=== PATIENT | female | born 1975 | race Hispanic/Latino ===

== ENCOUNTER 2017-02-10 14:27 | Emergency (ER) | payer MEDICAID ==
[2017-02-10 14:27] VITALS: BMI 26.6
[2017-02-10 14:31] VITALS: O2SAT 98
--- NOTE | 2017-02-10 14:48 | ED PDOC ---
HPI: General Adult Time Seen by Provider: 02/10/17 14:42 Chief Complaint (Nursing): Abdominal Pain Chief Complaint (Provider): abdominal pain History Per: Patient History/Exam Limitations: no limitations Additional History Per: Patient Additional Complaint(s): 41yo female sent from [facility] for ectopic. Patient complaining of bilateral lower abdominal pain. Past Medical History Reviewed: Historical Data, Nursing Documentation, Vital Signs Vital Signs: Last Vital Signs Temp 98.2 F 02/10/17 20:11 Pulse 83 02/10/17 20:11 Resp 14 02/10/17 20:11 BP 140/82 02/10/17 20:11 Pulse Ox 98 02/10/17 20:11 - Medical History PMH: Anxiety, Asthma (child), Crohn's Disease (dc 11/2014), Depression, Diabetes , Hypothyroidism, Migraine, Seizures (child) Denies: Alzheimer's Disease, Anemia, Arthritis, Bipolar Disorder, Bronchitis , CAD, Cardia Arrhythmia, CHF, COPD, Dementia, Emphysema, Fibromyalgia, Fractures, Gastrointestinal Ulcer, Gall Bladder Disease, HIV, HTN, Hypercholesterolemia, Hyperthyroidism, Kidney Stones, Mitral Valve Prolapse, Osteoporosis, Pancreatitis, Paranoia, Parkinson's Disease, Peripheral Edema, Pneumonia, Post Traumatic Stress Disorder, Chronic Kidney Disease, Schizophrenia , Sickle Cell Disease, Sexually Transmitted Disease, Sleep Apnea, TIA Comment Only: Diverticulitis (denius) - Surgical History Surgical History: Denies: Appendectomy, Cholecystectomy, Coronary Stent, Pacemaker - Family History Family History: States: Unknown Family Hx - Living Arrangements Living Arrangements: With Family - Social History Current smoker - smoking cessation education provided: No Alcohol: None Drugs: Denies - Immunization History Hx Tetanus Toxoid Vaccination: Yes Hx Influenza Vaccination: Yes Hx Pneumococcal Vaccination: Yes - Home Medications Home Medications: Ambulatory Orders Medication Instructions Recorded Insulin Detemir [Levemir] 20 units SC HS #0 vial 10/20/15 Insulin Lispro [humALOG] 0 units SC AC 02/10/17 Ibuprofen [Motrin Tab] 600 mg PO Q6 PRN #40 tab 02/14/17 oxyCODONE/Acetaminophen [Percocet 1 tab PO Q4 PRN #20 tab 02/14/17 5/325 mg Tab] - Allergies Allergies/Adverse Reactions: Allergies Allergy/AdvReac Type Severity Reaction Status Date / Time No Known Allergies Allergy Verified 02/10/17 10:53 Review of Systems ROS Statement: Except As Marked, All Systems Reviewed And Found Negative Gastrointestinal: Positive for: Abdominal Pain. Negative for: Vomiting Physical Exam - Reviewed Nursing Documentation Reviewed: Yes Vital Signs Reviewed: Yes - Physical Exam Appears: Positive for: Well, Non-toxic (+mild painful distress) Head Exam: Positive for: ATRAUMATIC, NORMAL INSPECTION, NORMOCEPHALIC Skin: Positive for: Warm, Dry Eye Exam: Positive for: EOMI, PERRL Cardiovascular/Chest: Positive for: Regular Rate, Rhythm Respiratory: Positive for: Normal Breath Sounds. Negative for: Rales, Rhonchi, Wheezing Gastrointestinal/Abdominal: Positive for: Soft, Tenderness (bilateral lower quadrant tenderness left greater than right) Extremity: Positive for: Normal ROM - ECG O2 Sat by Pulse Oximetry: 98 (RA) Pulse Ox Interpretation: Normal Medical Decision Making Medical Decision Makin Case discuss with Dr Acevedo [employer] P[employer] INSPECTOR who requested I discuss with Dr. Gooden. 1506 Dr. Gooden [employer] P[employer] INSPECTOR in delivery. [address] Gooden [employer]ESS PIPE INSPECTOR. 1625 Dr. Gooden at bedside. 1633 Dr. Gooden will give methotrexate. 191 case was discussed with Dr. Gooden who gave methotrexate. She instructed patient to return on Day 4 and Day 7 for repeat beta. Unable to find patient in [employer], will send home with rx percocet. Disposition - Clinical Impression Clinical Impression: Ectopic - Disposition Disposition: Routine/Home Disposition Time: 19:16 Condition: STABLE Additional Instructions: RETURN TO ED ON DAY 4 (02/13) and DAY 7 (02/16) FOR REPEAT BETA HCG. RETURN TO ED EARLIER IF YOU DEVELOP INCREASING PAIN OR BLEEDING. Instructions: Ectopic (ED) Additional Comments - Additional Comments Additional Comments: Scribe Attestation: Documented by Magnus Crow acting as a scribe for Ana Little MD. Scribe Attestation: All medical record entries made by the Scribe were at my direction and personally dictated by me. I have reviewed the chart and agree that the record accurately reflects my personal performance of the history, physical exam, medical decision making, and the department course for this patient. I have also personally directed, reviewed, and agree with the discharge instructions and disposition.
[2017-02-10] MEDS ORDERED: Methotrexate 50 mg/2 ml Inj IM ONE (16:54)
[2017-02-10] MEDS ORDERED: METHOTREXATE IM ONE ×2 (17:00→17:15)
--- NOTE | 2017-02-10 17:23 | CP.PCM.CON ---
History of Present Illness - History of Present Illness History of Present Illness: Patient is a 41 yo @ about 6 wks, history of type II DM on insulin who presents with vaginal bleeding and is found to have an ectopic . Patient has is found on ultrasound to have a gestational sac and yolk sac on the left side next to the adnexa with a BHCG = 1786, hgb = 12.6 and VSS. Patient has some mild abdominal pain, no vomiting, no nausea, mild HUGHES, no sob, no LOC, no CP, some mild vaginal bleeding, no difficulty ambulating. Review of Systems - Review of Systems Systems not reviewed;Unavailable: Acuity of Condition Past Patient History - Infectious Disease Hx of Infectious Diseases: None - Tetanus Immunizations Tetanus Immunization: Unknown - Past Social History Alcohol: None Drugs: Denies - CARDIAC Hx Cardia Arrhythmia: No Hx Congestive Heart Failure: No Hx Hypercholesterolemia: No Hx Hypertension: No Hx Mitral Valve Prolapse: No Hx Pacemaker: No Hx Peripheral Edema: No - PULMONARY Hx Asthma: Yes (child) Hx Bronchitis: No Hx Chronic Obstructive Pulmonary Disease (COPD): No Hx Emphysema: No Hx Pneumonia: No Hx Sleep Apnea: No - NEUROLOGICAL Hx Alzheimer's Disease: No Hx Dementia: No Hx Migraine: Yes Hx Parkinson's Disease: No Hx Seizures: Yes (child) Hx Transient Ischemic Attacks (TIA): No - HEENT Hx HEENT Problems: Yes Other/Comment: wears contacts - RENAL Hx Chronic Kidney Disease: No Hx Kidney Stones: No - ENDOCRINE/METABOLIC Hx Hyperthyroidism: No Hx Hypothyroidism: Yes - HEMATOLOGICAL/ONCOLOGICAL Hx Anemia: No Hx Human Immunodeficiency Virus (HIV): No Hx Sickle Cell Disease: No - INTEGUMENTARY Hx Dermatological Problems: No - MUSCULOSKELETAL/RHEUMATOLOGICAL Hx Arthritis: No Hx Fractures: No Hx Osteoporosis: No - GASTROINTESTINAL Hx Crohn's Disease: Yes (dc 11/2014) Hx Diverticulitis: (denius) Hx Gall Bladder Disease: No Hx Pancreatitis: No - GENITOURINARY/GYNECOLOGICAL Hx Sexually Transmitted Disorders: No - PSYCHIATRIC Hx Anxiety: Yes Hx Bipolar Disorder: No Hx Depression: Yes Hx Paranoia: No Hx Post Traumatic Stress Disorder: No Hx Schizophrenia: No - SURGICAL HISTORY Hx Appendectomy: No Hx Cholecystectomy: No Hx Coronary Stent: No - ANESTHESIA Hx Anesthesia: Yes Hx Anesthesia Reactions: No Hx Malignant Hyperthermia: No Meds Allergies/Adverse Reactions: Allergies Allergy/AdvReac Type Severity Reaction Status Date / Time No Known Allergies Allergy Verified 02/10/17 10:53 - Medications Medications: Current Medications Methotrexate (Methotrexate) 100 mg IM ONCE ONE PRN Reason: Protocol Stop: 02/10/17 16:55 Physical Exam - Head Exam Head Exam: ATRAUMATIC - Respiratory Exam Respiratory Exam: NORMAL BREATHING PATTERN - Cardiovascular Exam Cardiovascular Exam: REGULAR RHYTHM - GI/Abdominal Exam GI & Abdominal Exam: Soft Additional comments: no rebound, no gaurding, mild pain on deep palpation, +BS - Extremities Exam Extremities exam: Positive for: normal inspection - Skin Skin Exam: Dry, Normal Color Results - Vital Signs Recent Vital Signs: Last Vital Signs Temp 98.0 F 02/10/17 14:29 Pulse 85 02/10/17 14:29 Resp 16 02/10/17 14:29 BP 144/80 02/10/17 14:29 Pulse Ox 98 02/10/17 16:37 Assessment & Plan - Assessment and Plan (Free Text) Assessment: A/P 41 yo @ 6wks with ectopic for treatment with methotrexate 1. Patient examined and chart/lab findings reviewed. Patient is found to have a yolk sac present on left side, BHCG = 1728, HGB = 12.6, AST/ALT and BUN/Cr nml. Patient has mild abdominal pain on exam, VSS, some vaginal bleeding. 2. Will treat patient with Methotrexate. DIscussed risks/benefits with patient. Patient to follow up on Day 4 ( 02/13) and Day 7 ( 02/16) for BHCG. If patient has severe abdominal pain, patient instructed to return to hospital. If patient has less than 15% drop or if has not resolved, patient may still result in surgery for treatment or a second dose of Methotrexate. 3. All questions answered. Methotrexate ordered from pharmacy and will inject patient
[2017-02-10] MEDS ORDERED: Oxycodone/Acetaminophen 5/325 mg Tab ONE (18:59)
[2017-02-10] MEDS ORDERED: Oxycodone/Acetaminophen 5/325 mg Tab PO STA (19:10)
[2017-02-10 20:14] VITALS: BP 140/82; PULSE 83; RESP 14; TEMP 98.2
== END 2017-02-10 19:30 | disposition home or self-care (01) ==
LOC: H.ER 14:27
DX: O00.90 Unspecified ectopic pregnancy without intrauterine pregnancy (principal); E03.9 Hypothyroidism, unspecified; E11.9 Type 2 diabetes mellitus without complications; F41.9 Anxiety disorder, unspecified; K50.90 Crohn's disease, unspecified, without complications; Z79.4 Long term (current) use of insulin; J45.909 Unspecified asthma, uncomplicated

== ENCOUNTER 2017-02-13 11:22 | Inpatient (IN) | payer MEDICAID ==
[2017-02-13 11:22] VITALS: BMI 26.6
--- NOTE | 2017-02-13 12:31 | ED PDOC ---
HPI: General Adult History Per: Patient <Anthony Coronel - Last Filed: 02/13/17 12:28> <José Manuel Blank - Last Filed: 02/13/17 16:32> Time Seen by Provider: 02/13/17 11:46 Chief Complaint (Nursing): Abdominal Pain Additional Complaint(s): Pt. states on 02/10/17 she was diagnosed with an ectopic and was given a shot of MTX. She was instructed by Dr. Gooden to come today for repeat BHCG. Pt. states pain has been the same since she came in and has not worsened. Also reports that bleeding has decreased. Further reports percocet provides transiet relief. Denies hx of ectopic , N/V, fever. (Anthony Coronel) Supervising Attending Note <Anthony Coronel - Last Filed: 02/13/17 12:28> - Attestation: I have personally seen and examined this patient.: Yes I have fully participated in the care of the patient.: Yes <José Manuel Blank - Last Filed: 02/13/17 16:32> - Notes: Notes:: Pt. seen at bedside, BP 104/78, HR 77, nontoxic appearing, complains of pain. Pt. seen and examined by Dr. Trujillo who wishes to take patient to OR for removal. No rupture on sonogram. Patient stable. (José Manuel Blank) Past Medical History Reviewed: Historical Data, Nursing Documentation, Vital Signs - Medical History PMH: Anxiety, Asthma (child), Crohn's Disease (dc 11/2014), Depression, Diabetes , Hypothyroidism, Migraine, Seizures (child) Denies: Alzheimer's Disease, Anemia, Arthritis, Bipolar Disorder, Bronchitis , CAD, Cardia Arrhythmia, CHF, COPD, Dementia, Emphysema, Fibromyalgia, Fractures, Gastrointestinal Ulcer, Gall Bladder Disease, HIV, HTN, Hypercholesterolemia, Hyperthyroidism, Kidney Stones, Mitral Valve Prolapse, Osteoporosis, Pancreatitis, Paranoia, Parkinson's Disease, Peripheral Edema, Pneumonia, Post Traumatic Stress Disorder, Chronic Kidney Disease, Schizophrenia , Sickle Cell Disease, Sexually Transmitted Disease, Sleep Apnea, TIA Comment Only: Diverticulitis (denius) - Surgical History Surgical History: Denies: Appendectomy, Cholecystectomy, Coronary Stent, Pacemaker - Family History Family History: States: Unknown Family Hx - Immunization History Hx Tetanus Toxoid Vaccination: Yes Hx Influenza Vaccination: Yes Hx Pneumococcal Vaccination: Yes <Anthony Coronel - Last Filed: 02/13/17 12:28> <José Manuel Blank - Last Filed: 02/13/17 16:32> Vital Signs: Last Vital Signs Temp 98.8 F 02/13/17 16:12 Pulse 84 02/13/17 16:13 Resp 21 02/13/17 16:12 BP 104/63 02/13/17 16:12 Pulse Ox 97 02/13/17 16:12 - Home Medications Home Medications: Ambulatory Orders Medication Instructions Recorded Insulin Detemir [Levemir] 20 units SC HS #0 vial 10/20/15 Insulin Lispro [humALOG] 0 units SC AC 02/10/17 oxyCODONE/Acetaminophen [Percocet 1 tab PO Q6H PRN #15 tab 02/10/17 5/325 mg Tab] - Allergies Allergies/Adverse Reactions: Allergies Allergy/AdvReac Type Severity Reaction Status Date / Time No Known Allergies Allergy Verified 02/10/17 10:53 Review of Systems ROS Statement: Except As Marked, All Systems Reviewed And Found Negative Genitourinary Female: Positive for: Vaginal Bleeding, Pelvic Pain <Anthony Coronel - Last Filed: 02/13/17 12:28> Physical Exam - Reviewed Nursing Documentation Reviewed: Yes Vital Signs Reviewed: Yes - Physical Exam Appears: Positive for: Well, Non-toxic, No Acute Distress Head Exam: Positive for: ATRAUMATIC, NORMAL INSPECTION, NORMOCEPHALIC Skin: Positive for: Normal Color, Warm. Negative for: Rash Eye Exam: Positive for: EOMI, Normal appearance, PERRL ENT: Positive for: Normal ENT Inspection Neck: Positive for: Normal, Painless ROM Cardiovascular/Chest: Positive for: Regular Rate, Rhythm Respiratory: Positive for: CNT, Normal Breath Sounds Gastrointestinal/Abdominal: Positive for: Normal Exam, Bowel Sounds, Soft. Negative for: Tenderness Back: Positive for: Normal Inspection Extremity: Positive for: Normal ROM Neurologic/Psych: Positive for: Alert, Oriented <Anthony Coronel Last Filed: 02/13/17 12:28> - ECG O2 Sat by Pulse Oximetry: 100 <Anthony Coronel - Last Filed: 02/13/17 12:28> - Laboratory Results Result Diagrams: 02/13/17 12:25 02/13/17 12:25 <José Manuel Blank - Last Filed: 02/13/17 16:32> - Progress ED Course And Treament: Labs ordered. OB TVUS ordered. Morphine 4mg IV, zofran 4mg IV given. ( Anthony Coronel) Disposition <Anthony Coronel - Last Filed: 02/13/17 12:28> - Disposition Disposition: Routine/Home Disposition Time: 16:32 <José Manuel Blank - Last Filed: 02/13/17 16:32> - Clinical Impression Clinical Impression: Ectopic - Disposition Condition: STABLE
[2017-02-13 12:47] LABS: BASO # 0.2 K/uL (0.0-0.2); BASO % 1.2 % (0.0-2.0); EOS # 0.4 K/uL (0.0-0.7); EOS % 2.4 % (0.0-4.0); HEMATOCRIT 37.5 % (34.0-47.0); LYMPH % 27.5 % (20.0-40.0); MEAN CELL VOLUME 89.2 fl (81.0-99.0); MEAN CORPUSCULAR HEMOGLOBIN 29.5 pg (27.0-31.0); MEAN CORPUSCULAR HGB CONC 33.1 g/dL (33.0-37.0); MEAN PLATELET VOLUME 8.4 fl (7.2-11.7); MONO # 0.8 K/uL (0.0-0.8); MONO % 5.2 % (0.0-10.0); NEUT # 9.3 K/uL (1.8-7.0); NEUT % 63.7 % (50.0-75.0); NRBC % 0.1 % (0.0-0.0); RED CELL DISTRIBUTION WIDTH 15.3 % (11.5-14.5); WHITE BLOOD COUNT 14.6 K/uL (4.8-10.8)
[2017-02-13 12:56] LABS: ALB/GLOB RATIO 1.2 (1.0-2.1); GLUCOSE,RANDOM 43 mg/dL (65-105); TOTAL PROTEIN 6.9 G/DL (6.3-8.2)
[2017-02-13 12:58] LABS: ALKALINE PHOSPHATASE 74 U/L (38-126); ALT/SGPT 24 U/L (9-52); AST/SGOT 22 U/L (14-36); BILIRUBIN,TOTAL 0.2 mg/dl (0.2-1.3); BLOOD UREA NITROGEN 9 mg/dl (7-17); CALCIUM 9.3 mg/dL (8.4-10.2); CARBON DIOXIDE 25 mmol/L (22-30); CHLORIDE 103 mmol/L (98-107); GFR AFRICAN-AMERICAN > 60; SODIUM 139 mmol/l (132-148)
[2017-02-13 13:09] LABS: PH,URINE 6.5 (5.0-8.0); URINE BILIRUBIN NEGATIVE (NEGATIVE); URINE BLOOD MODERATE (NEGATIVE); URINE COLOR LIGHT YELLOW (YELLOW); URINE GLUCOSE (UA) NEGATIVE (Normal); URINE KETONE NEGATIVE (NEGATIVE); URINE PROTEIN NEGATIVE (NEGATIVE)
[2017-02-13 13:10] LABS: RBC URINE 3 /hpf (0-3); URINE BACTERIA FEW (<OCC); URINE LEUKOCYTE ESTERASE TRACE Leu/uL (Negative); URINE UROBILINOGEN 0.2 mg/dL (0.2-1.0); WBC URINE 2 /hpf (0-5)
--- NOTE | 2017-02-13 15:09 | US ---
HISTORY: Ectopic ; given MTX COMPARISON: None available. TECHNIQUE: Transvaginal pelvic ultrasound was performed. FINDINGS: UTERUS: The uterus is anteverted, enlarged and measures 9.1 x 5.5 x 6.1 cm. No fibroid or other mass lesion seen. ENDOMETRIUM: Measures 2.6 cm in diameter. CERVIX: No cervical abnormality identified. RIGHT OVARY: Not visualized. LEFT OVARY: Measures 2.3 x 1.6 x 2.0 cm. No solid mass. Normal flow. There is an ectopic in the left adnexa. The pole measures 2 mm and corresponds to 5 weeks and 5 days of gestational age. Yolk sac is visualized. cardiac activity is documented a with a heart rate of 108 beats per minute. FREE FLUID: No significant free fluid noted. OTHER FINDINGS: None. IMPRESSION: Left ectopic with pole and yolk sac identified. cardiac activity measures 108 beats per minute. No evidence of free fluid in the pelvis.
--- NOTE | 2017-02-13 16:14 | CP.PCM.HP ---
History of Present Illness - History of Present Illness History of Present Illness: 41yo female dz with ectopic 3 days ago and given MTX. Pt presents today with acute abdominal pain. Pt s/p 2 doses of IV morphine due to pain and patient reports pain persisting. No N/V, CP, SoB. VSS in ED. Present on Admission - Present on Admission Any Indicators Present on Admission: No History of DVT/PE: No History of Uncontrolled Diabetes: No Urinary Catheter: No Decubitus Ulcer Present: No Past Patient History - Infectious Disease Hx of Infectious Diseases: None - Tetanus Immunizations Tetanus Immunization: Unknown - Past Social History Smoking Status: Heavy Smoker > 10 Cigarettes Daily - CARDIAC Hx Cardia Arrhythmia: No Hx Congestive Heart Failure: No Hx Hypercholesterolemia: No Hx Hypertension: No Hx Mitral Valve Prolapse: No Hx Pacemaker: No Hx Peripheral Edema: No - PULMONARY Hx Asthma: Yes (child) Hx Bronchitis: No Hx Chronic Obstructive Pulmonary Disease (COPD): No Hx Emphysema: No Hx Pneumonia: No Hx Sleep Apnea: No - NEUROLOGICAL Hx Alzheimer's Disease: No Hx Dementia: No Hx Migraine: Yes Hx Parkinson's Disease: No Hx Seizures: Yes (child) Hx Transient Ischemic Attacks (TIA): No - HEENT Hx HEENT Problems: No - RENAL Hx Chronic Kidney Disease: No Hx Kidney Stones: No - ENDOCRINE/METABOLIC Hx Hyperthyroidism: No Hx Hypothyroidism: Yes - HEMATOLOGICAL/ONCOLOGICAL Hx Anemia: No Hx Human Immunodeficiency Virus (HIV): No Hx Sickle Cell Disease: No - INTEGUMENTARY Hx Dermatological Problems: No - MUSCULOSKELETAL/RHEUMATOLOGICAL Hx Arthritis: No Hx Fractures: No Hx Osteoporosis: No - GASTROINTESTINAL Hx Crohn's Disease: Yes (dc 11/2014) Hx Diverticulitis: (denius) Hx Gall Bladder Disease: No Hx Pancreatitis: No - GENITOURINARY/GYNECOLOGICAL Hx Sexually Transmitted Disorders: No - PSYCHIATRIC Hx Anxiety: Yes Hx Bipolar Disorder: No Hx Depression: Yes Hx Paranoia: No Hx Post Traumatic Stress Disorder: No Hx Schizophrenia: No - SURGICAL HISTORY Hx Appendectomy: No Hx Cholecystectomy: No Hx Coronary Stent: No - ANESTHESIA Hx Anesthesia: Yes Hx Anesthesia Reactions: No Hx Malignant Hyperthermia: No Meds Allergies/Adverse Reactions: Allergies Allergy/AdvReac Type Severity Reaction Status Date / Time No Known Allergies Allergy Verified 02/10/17 10:53 Physical Exam - Head Exam Head Exam: ATRAUMATIC, NORMOCEPHALIC - Respiratory Exam Respiratory Exam: NORMAL BREATHING PATTERN - Cardiovascular Exam Cardiovascular Exam: REGULAR RHYTHM - GI/Abdominal Exam GI & Abdominal Exam: Normal Bowel Sounds, Soft Additional comments: +diffuse tenderness. +rebound and gaurding with palpation - Rectal Exam Rectal Exam: NORMAL INSPECTION - Neurological Exam Neurological exam: Alert, Oriented x3 Results - Vital Signs Recent Vital Signs: Last Vital Signs Temp 98.3 F 02/13/17 11:24 Pulse 90 02/13/17 11:24 Resp 18 02/13/17 11:24 BP 123/74 02/13/17 11:24 Pulse Ox 100 02/13/17 12:31 - Labs Result Diagrams: 02/13/17 12:25 02/13/17 12:25 Labs: Laboratory Results - last 24 hr 02/13/17 02/13/17 02/13/17 12:25 12:25 12:25 WBC 14.6 H RBC 4.20 Hgb 12.4 Hct 37.5 MCV 89.2 MCH 29.5 MCHC 33.1 RDW 15.3 H Plt Count 355 MPV 8.4 Neut % (Auto) 63.7 Lymph % (Auto) 27.5 [place] % (Auto) 5.2 Eos % (Auto) 2.4 Baso % (Auto) 1.2 Neut # 9.3 H Lymph # 4.0 [place] # 0.8 Eos # 0.4 Baso # 0.2 Sodium 139 Potassium 4.0 Chloride 103 Carbon Dioxide 25 Anion Gap 15 BUN 9 Creatinine 0.6 L Est GFR ( Amer) > 60 Est GFR (Non-Af Amer) > 60 Random Glucose 43 L Calcium 9.3 Total Bilirubin 0.2 AST 22 ALT 24 Alkaline Phosphatase 74 Total Protein 6.9 Albumin 3.8 Globulin 3.1 Albumin/Globulin Ratio 1.2 Beta HCG, Quant 3302.30 Urine Color Light yellow Urine Clarity Clear Urine pH 6.5 Ur Specific [place] <= 1.005 Urine Protein Negative Urine Glucose (UA) Negative Urine Ketones Negative Urine Blood Moderate Urine Nitrate Negative Urine Bilirubin Negative Urine Urobilinogen 0.2 Ur Leukocyte Esterase Trace Urine RBC (Auto) 3 Urine Microscopic WBC 2 Ur Squamous Epith Cells 30 H Urine Bacteria Few H Assessment & Plan - Assessment and Plan (Free Text) Assessment: Ectopic , s/p MTX with acute pain. Plan: Discussed with patient options. Recommended surgery due to level of pain and patient agrees with plan. Pt consented for laparoscopy, possible laparotomy, removal of ectopic, possible removal of tube. Discussed with patient the general R/B/A of surgery and all patient questions answered. Main OR and anesthesia notified. - Date & Time Date: 02/13/17 Time: 16:18
[2017-02-13] MEDS ORDERED: Propofol 10 mg/ml Inj (20 ML) ONE (16:31)
[2017-02-13] MEDS ORDERED: Midazolam 2 MG/2 ML VIAL ONE (16:32)
[2017-02-13] MEDS ORDERED: Rocuronium 10 mg/ml (5 ml) ONE (16:32)
[2017-02-13] MEDS ORDERED: Neostigmine Methylsulfate 3mg/3ml Syringe IV ONE (16:32)
[2017-02-13] MEDS ORDERED: Succinylcholine 200 mg/10 ml Inj IV ONE (16:32)
[2017-02-13] MEDS ORDERED: ePHEDrine 50 mg/ml Inj ONE (16:32)
[2017-02-13] MEDS ORDERED: Phenylephrine 10 mg/ml Inj ONE (16:33)
[2017-02-13] MEDS ORDERED: Lactated Ringer's 1,000 ML IV ONE ×2 (16:45→18:55)
[2017-02-13 16:57] LABS: PARTIAL THROMBOPLASTIN TIME 26.4 SECONDS (23.3-32.5)
[2017-02-13] MEDS ORDERED: HYDROmorphone 0.5 mg/0.5 ml ISec ONE ×2 (18:21→18:28)
[2017-02-13] MEDS ORDERED: Lactated Ringer's 1,000 ML IV SCH ×2 (18:44→20:03)
[2017-02-13] MEDS ORDERED: HYDROmorphone 0.5 mg/0.5 ml ISec IVP PRN (18:56)
[2017-02-13] MEDS ORDERED: HYDROmorphone 0.5 mg/0.5 ml ISec IVP ONE ×2 (19:20→19:30)
[2017-02-13] MEDS ORDERED: DiphenhydrAMINE 50 mg/ml Inj ONE (19:38)
[2017-02-13] MEDS ORDERED: DiphenhydrAMINE 50 mg/ml Inj IVP PRN (19:44)
[2017-02-13] MEDS ORDERED: Oxycodone/Acetaminophen 5/325 mg Tab PO PRN ×2 (20:03→20:08)
[2017-02-13] MEDS ORDERED: Glucagon Recombinant 1 mg Inj IM PRN (21:36)
[2017-02-13] MEDS ORDERED: Dextrose 50% SYRINGE Inj (50 ml) IV PRN (21:36)
[2017-02-13] MEDS ORDERED: Insulin Regular 100 units/ml SC SCH (21:40)
--- NOTE | 2017-02-13 22:36 | PCM.SURG1 ---
Surgeon's Initial Post Op Note - Surgeon's Notes Surgeon: Cassandra Brush Maker: Yariel Type of Anesthesia: General Endo Anesthesia Administered By: Francisca Pre-Operative Diagnosis: Ectopic Operative Findings: Left tubal ectopic , Normal right tube, normal ovaries bilaterally, normal uterus Post-Operative Diagnosis: Left tubal ectopic Operation Performed: Laparoscopy, Left salpingectomy Specimen/Specimens Removed: Left tube with ectopic Estimated Blood Loss: EBL {In ML}: 100 Blood Products Given: N/A Drains Used: No Drains Post-Op Condition: Good Date of Surgery/Procedure: 02/13/17 Time of Surgery/Procedure: 22:37
--- NOTE | 2017-02-13 22:45 | CP.PCM.PN ---
Subjective - Date & Time of Evaluation Date of Evaluation: 02/13/17 Time of Evaluation: 22:41 - Subjective Subjective: Pt requesting more pain medication. Tolerating liquids. No CP/SOB. No N/V. + Void without problem. Ambulating small amt. Objective - Vital Signs/Intake and Output Vital Signs (last 24 hours): Temp Pulse Resp BP Pulse Ox 98.4 F 80 18 115/66 97 02/13/17 20:21 02/13/17 20:21 02/13/17 20:21 02/13/17 20:21 02/13/17 20:21 Intake and Output: 02/13/17 02/14/17 18:59 06:59 Intake Total 1300 Output Total 190 Balance 1300 -190 - Medications Medications: Current Medications Dextrose (Dextrose 50% Inj) 0 ml IV STAT PRN; Protocol PRN Reason: Hyglycemia Protocol Dextrose (Glutose 15) 0 gm PO ONCE PRN; Protocol PRN Reason: Hypoglycemia Protocol Diphenhydramine HCl (Benadryl) 25 mg IVP ONCE PRN PRN Reason: Anxiety Last Admin: 02/13/17 19:50 Dose: 25 mg Glucagon (Glucagen Diagnostic Kit) 0 mg IM STAT PRN; Protocol PRN Reason: Hypoglycemia Protocol Hydromorphone HCl (Dilaudid) 1 mg IVP Q4 PRN PRN Reason: Pain, severe (8-10) Lactated Ringer's (Lactated Ringer's) 1,000 mls @ 125 mls/hr IV .Q8H ALEJO Lactated Ringer's (Lactated Ringer's) 1,000 mls @ 125 mls/hr IV .Q8H ALEJO Ibuprofen (Motrin Tab) 600 mg PO Q6 PRN PRN Reason: Pain, Mild (1-3) Insulin Human Regular (Humulin R) 0 units SC ACHS ALEJO PRN Reason: Protocol Last Admin: 02/13/17 21:47 Dose: Not Given Insulin Human Regular (Humulin R) 8 units SC ONCE ONE Stop: 02/14/17 22:30 Oxycodone/Acetaminophen (Percocet 5/325 Mg Tab) 1 tab PO Q4 PRN PRN Reason: Pain, moderate (4-7) Stop: 02/16/17 20:04 - Labs Labs: PT 10.0 SECONDS (9.6-11.2) 02/13/17 16:01 INR 0.96 (0.92-1.08) 02/13/17 16:01 APTT 26.4 SECONDS (23.3-32.5) 02/13/17 16:01 - Constitutional Appears: Non-toxic - ENT Exam ENT Exam: Mucous Membranes Moist - Neck Exam Neck Exam: Full ROM - Respiratory Exam Respiratory Exam: Clear to Ausculation Bilateral, NORMAL BREATHING PATTERN - Cardiovascular Exam Cardiovascular Exam: REGULAR RHYTHM - GI/Abdominal Exam GI & Abdominal Exam: Normal Bowel Sounds Additional comments: Port site bandages C/D/I. Abd soft, approp diffuse tender Assessment and Plan - Assessment and Plan (Free Text) Assessment: POD#0 s/p laparoscopy, Lt Salpingectomy Plan: IV Dilaudid for pain RISS for DM coverage Venodynes while in bed Advance diet to regular Discussed plan with patient and all questions regarding surgery answered.
[2017-02-13] MEDS ORDERED: Insulin Regular 100 units/ml SC STA (23:23)
[2017-02-13] MEDS: HYDROmorphone 0.5 mg/0.5 ml ISec IVP PRN (23:45)
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
[2017-02-14] MEDS ORDERED: Insulin Lispro (humaLOG) 100 Units/ml Inj SC STA (01:25)
[2017-02-14] MEDS ORDERED: Oxycodone/Acetaminophen 5/325 mg Tab PO ONE (01:26)
[2017-02-14] MEDS ORDERED: Lactated Ringer's 1,000 ML IV SCH (01:45)
[2017-02-14 02:19] LABS: BLOOD UREA NITROGEN 11 mg/dl (7-17); CALCIUM 8.2 mg/dL (8.4-10.2); CARBON DIOXIDE 25 mmol/L (22-30); CHLORIDE 98 mmol/L (98-107); GFR AFRICAN-AMERICAN > 60; POTASSIUM 4.4 MMOL/L (3.6-5.0); SODIUM 129 mmol/l (132-148)
[2017-02-14 02:22] LABS: GLUCOSE,RANDOM 412 mg/dL (65-105)
[2017-02-14] MEDS: HYDROmorphone 0.5 mg/0.5 ml ISec IVP PRN ×2 (03:45→07:35)
[2017-02-14 05:02] VITALS: RESP 19
[2017-02-14 05:18] VITALS: BP 106/74; PULSE 71; TEMP 98.4; O2SAT 96
--- NOTE | 2017-02-14 07:10 | CP.PCM.PN ---
Subjective - Date & Time of Evaluation Date of Evaluation: 02/14/17 Time of Evaluation: 07:06 - Subjective Subjective: POD 1 41 yr F s/p Laparoscopic left salpingectomy for ectopic . Patient was seen and examined at bedside, sitting in bed, has complaint of abdominal pain controlled with medication. Patient is tolerating PO diet, has a good appetite, having normal urine ouput, ambulating without difficulty. Reports she would like to go home. Has no other concerns or complaints at this time. Objective - Vital Signs/Intake and Output Vital Signs (last 24 hours): Temp Pulse Resp BP Pulse Ox 98.4 F 71 19 106/74 96 02/14/17 05:00 02/14/17 05:00 02/14/17 05:00 02/14/17 05:00 02/14/17 05:00 Intake and Output: 02/14/17 02/14/17 06:59 18:59 Output Total 190 Balance -190 - Medications Medications: Current Medications Dextrose (Dextrose 50% Inj) 0 ml IV STAT PRN; Protocol PRN Reason: Hyglycemia Protocol Dextrose (Glutose 15) 0 gm PO ONCE PRN; Protocol PRN Reason: Hypoglycemia Protocol Diphenhydramine HCl (Benadryl) 25 mg IVP ONCE PRN PRN Reason: Anxiety Last Admin: 02/13/17 19:50 Dose: 25 mg Glucagon (Glucagen Diagnostic Kit) 0 mg IM STAT PRN; Protocol PRN Reason: Hypoglycemia Protocol Heparin Sodium (Porcine) (Heparin) 5,000 units SC Q12 ALEJO PRN Reason: Protocol Hydromorphone HCl (Dilaudid) 1 mg IVP Q4 PRN PRN Reason: Pain, severe (8-10) Last Admin: 02/14/17 03:45 Dose: 1 mg Lactated Ringer's (Lactated Ringer's) 1,000 mls @ 175 mls/hr IV .Q5H43M ALEJO Last Admin: 02/14/17 01:53 Dose: 175 mls/hr Ibuprofen (Motrin Tab) 600 mg PO Q6 PRN PRN Reason: Pain, Mild (1-3) Insulin Detemir (Levemir) 10 units SC ACB ALEJO Stop: 02/14/17 07:31 Insulin Detemir (Levemir) 10 units SC HS ALEJO Insulin Human Lispro (Humalog) 0 units SC ACHS ALEJO PRN Reason: Protocol Oxycodone/Acetaminophen (Percocet 5/325 Mg Tab) 1 tab PO Q4 PRN PRN Reason: Pain, moderate (4-7) Stop: 02/16/17 20:04 Last Admin: 02/14/17 05:56 Dose: 1 tab - Labs Labs: 02/14/17 01:58 PT 10.0 SECONDS (9.6-11.2) 02/13/17 16:01 INR 0.96 (0.92-1.08) 02/13/17 16:01 APTT 26.4 SECONDS (23.3-32.5) 02/13/17 16:01 - Constitutional Appears: Non-toxic, No Acute Distress - Head Exam Head Exam: ATRAUMATIC, NORMOCEPHALIC - Eye Exam Eye Exam: EOMI. absent: Periorbital tenderness - ENT Exam ENT Exam: Mucous Membranes Moist - Neck Exam Neck Exam: Full ROM. absent: Lymphadenopathy - Respiratory Exam Respiratory Exam: Clear to Ausculation Bilateral - Cardiovascular Exam Cardiovascular Exam: REGULAR RHYTHM, +S1, +S2. absent: Gallop, Rubs, Murmur - GI/Abdominal Exam GI & Abdominal Exam: Soft, Tenderness (mild tenderness to palpation in incision sites, dressing dry and intact), Normal Bowel Sounds - Extremities Exam Extremities Exam: Full ROM. absent: Pedal Edema - Back Exam Back Exam: absent: CVA tenderness (L), CVA tenderness (R) - Neurological Exam Neurological Exam: Alert, Awake - Psychiatric Exam Psychiatric exam: Agitated, Anxious. absent: Homicidal Ideation, Suicidal Ideation - Skin Skin Exam: Dry, Intact, Normal Color Assessment and Plan - Assessment and Plan (Free Text) Assessment: A/P 1. POD 1 s/p Laparoscopic left salpingectomy, patient stable -Discharge home -Follow up with your PCP Jose Alberto Cutler for managment your IDDM -Follow up with your Obgyn Nyla Baron within [address] Trujillo ([address] [place], [place] [address] [address], [facility] [id number], ) -ER precautions reviewed (fever, severe pain, erythema, moderate-severe discharge from incision sites, signs and symptoms of infection) -Pain management Ibuprofen 600mg PO Q6 with food PRN pain 1-3 ; Percocet 5/ 325mg PO Q4 PRN for pain 4-7
[2017-02-14] MEDS: Insulin Lispro (humaLOG) 100 Units/ml Inj SC SCH ×3 (07:14→08:04)
[2017-02-14] MEDS ORDERED: Insulin Detemir 100 Units/ml Inj SC SCH ×3 (07:30→22:00)
--- NOTE | 2017-02-14 07:39 | CP.PCM.DIS ---
Provider - Provider Date of Admission: 02/13/17 16:14 Attending physician: Sathish Trujillo MD Primary care physician: Jose Alberto Cutler Consults: Lui Judd -Hospitalist Time Spent in preparation of Discharge (in minutes): 30 Diagnosis - Discharge Diagnosis (1) Status post laparoscopic procedure Status: Acute Priority: Medium (2) Ectopic Status: Resolved Priority: Medium Hospital Course - Lab Results Lab Results: Most Recent Lab Values WBC 14.6 K/uL (4.8-10.8) H 02/13/17 12:25 RBC 4.20 Mil/uL (3.80-5.20) 02/13/17 12:25 Hgb 12.4 g/dL (12.0-16.0) 02/13/17 12:25 Hct 37.5 % (34.0-47.0) 02/13/17 12:25 MCV 89.2 fl (81.0-99.0) 02/13/17 12:25 MCH 29.5 pg (27.0-31.0) 02/13/17 12:25 MCHC 33.1 g/dL (33.0-37.0) 02/13/17 12:25 RDW 15.3 % (11.5-14.5) H 02/13/17 12:25 Plt Count 355 K/uL (130-400) 02/13/17 12:25 MPV 8.4 fl (7.2-11.7) 02/13/17 12:25 Neut % (Auto) 63.7 % (50.0-75.0) 02/13/17 12:25 Lymph % (Auto) 27.5 % (20.0-40.0) 02/13/17 12:25 Garrett % (Auto) 5.2 % (0.0-10.0) 02/13/17 12:25 Eos % (Auto) 2.4 % (0.0-4.0) 02/13/17 12:25 Baso % (Auto) 1.2 % (0.0-2.0) 02/13/17 12:25 Neut # 9.3 K/uL (1.8-7.0) H 02/13/17 12:25 Lymph # 4.0 K/uL (1.0-4.3) 02/13/17 12:25 Garrett # 0.8 K/uL (0.0-0.8) 02/13/17 12:25 Eos # 0.4 K/uL (0.0-0.7) 02/13/17 12:25 Baso # 0.2 K/uL (0.0-0.2) 02/13/17 12:25 PT 10.0 SECONDS (9.6-11.2) 02/13/17 16:01 INR 0.96 (0.92-1.08) 02/13/17 16:01 APTT 26.4 SECONDS (23.3-32.5) 02/13/17 16:01 Sodium 129 mmol/l (132-148) L 02/14/17 01:58 Potassium 4.4 MMOL/L (3.6-5.0) 02/14/17 01:58 Chloride 98 mmol/L (98-107) 02/14/17 01:58 Carbon Dioxide 25 mmol/L (22-30) 02/14/17 01:58 Anion Gap 10 (10-20) 02/14/17 01:58 BUN 11 mg/dl (7-17) 02/14/17 01:58 Creatinine 0.6 mg/dL (0.7-1.2) L 02/14/17 01:58 Est GFR ( Amer) > 60 02/14/17 01:58 Est GFR (Non-Af Amer) > 60 02/14/17 01:58 POC Glucose (mg/dL) 106 mg/dL (65-110) 02/14/17 06:06 Random Glucose 412 mg/dL (65-105) H* D 02/14/17 01:58 Calcium 8.2 mg/dL (8.4-10.2) L 02/14/17 01:58 Total Bilirubin 0.2 mg/dl (0.2-1.3) 02/13/17 12:25 AST 22 U/L (14-36) 02/13/17 12:25 ALT 24 U/L (9-52) 02/13/17 12:25 Alkaline Phosphatase 74 U/L (38-126) 02/13/17 12:25 Total Protein 6.9 G/DL (6.3-8.2) 02/13/17 12:25 Albumin 3.8 g/dL (3.5-5.0) 02/13/17 12:25 Globulin 3.1 gm/dL (2.2-3.9) 02/13/17 12:25 Albumin/Globulin Ratio 1.2 (1.0-2.1) 02/13/17 12:25 Beta HCG, Quant 3302.30 mIU/mL 02/13/17 12:25 Urine Color Light yellow (YELLOW) 02/13/17 12:25 Urine Clarity Clear (Clear) 02/13/17 12:25 Urine pH 6.5 (5.0-8.0) 02/13/17 12:25 Ur Specific [place] <= 1.005 (1.003-1.030) 02/13/17 12:25 Urine Protein Negative mg/dL (NEGATIVE) 02/13/17 12:25 Urine Glucose (UA) Negative mg/dL (Normal) 02/13/17 12:25 Urine Ketones Negative mg/dL (NEGATIVE) 02/13/17 12:25 Urine Blood Moderate (NEGATIVE) 02/13/17 12:25 Urine Nitrate Negative (NEGATIVE) 02/13/17 12:25 Urine Bilirubin Negative (NEGATIVE) 02/13/17 12:25 Urine Urobilinogen 0.2 mg/dL (0.2-1.0) 02/13/17 12:25 Ur Leukocyte Esterase Trace Zara/uL (Negative) 02/13/17 12:25 Urine RBC (Auto) 3 /hpf (0-3) 02/13/17 12:25 Urine Microscopic WBC 2 /hpf (0-5) 02/13/17 12:25 Ur Squamous Epith Cells 30 /hpf (0-5) H 02/13/17 12:25 Urine Bacteria Few (<OCC) H 02/13/17 12:25 Urine Opiates Screen Positive (NEGATIVE) H 02/13/17 16:30 Urine Methadone Screen Negative (NEGATIVE) 02/13/17 16:30 Ur Barbiturates Screen Negative (NEGATIVE) 02/13/17 16:30 Ur Phencyclidine Scrn Negative (NEGATIVE) 02/13/17 16:30 Ur Amphetamines Screen Negative (NEGATIVE) 02/13/17 16:30 U Benzodiazepines Scrn Negative (NEGATIVE) 02/13/17 16:30 U Oth Cocaine Metabols Negative (NEGATIVE) 02/13/17 16:30 U Cannabinoids Screen Positive (NEGATIVE) H 02/13/17 16:30 Blood Type O POSITIVE 02/13/17 15:45 Antibody Screen Negative 02/13/17 15:45 BBK History Checked Patient has bt 02/13/17 15:45 - Hospital Course Hospital Course: 41 yr F admitted 02/13/17 for surgical intervention for Ectopic s/p laparoscopic left salpingectomy on 02/13/17. Patient is POD # 1, tolerating PO diet, having normal urine output, ambulating without difficulty. Pain is controlled with medication. Requests to go home. Patient has no concerns or complaints at this time. - Date & Time of H&P Date of H&P: 02/13/17 Time of H&P: 16:12 Discharge Exam - Head Exam Head Exam: ATRAUMATIC, NORMOCEPHALIC - Eye Exam Eye Exam: EOMI - ENT Exam ENT Exam: Mucous Membranes Moist - Neck Exam Neck exam: Lymphadenopathy - Respiratory Exam Respiratory Exam: Clear to PA & Lateral, NORMAL BREATHING PATTERN - Cardiovascular Exam Cardiovascular Exam: REGULAR RHYTHM, +S1, +S2 - GI/Abdominal Exam GI & Abdominal Exam: Normal Bowel Sounds, Soft, Tenderness (mild tenderness to palpation at incision sites, dressings dry and intact) - Extremities Exam Extremities exam: full ROM (no pedal edema), pedal pulses present - Back Exam Back exam: absent: CVA tenderness (L), CVA tenderness (R) - Neurological Exam Neurological exam: Alert - Psychiatric Exam Psychiatric exam: Agitated, Anxious - Skin Skin Exam: Dry, Intact Discharge Plan - Discharge Medications Prescriptions: Ibuprofen [Motrin Tab] 600 mg PO Q6 PRN #40 tab PRN Reason: Pain, Mild (1-3) oxyCODONE/Acetaminophen [Percocet 5/325 mg Tab] 1 tab PO Q4 PRN #20 tab PRN Reason: Pain, Moderate (4-7) - Follow Up Plan Condition: STABLE Disposition: HOME/ ROUTINE Patient education suggested?: Yes Instructions: Ectopic (DC), Salpingectomy (DC) Additional Instructions: -Discharge home -Follow up with your PCP Jose Alberto Cutler for managment your IDDM -Follow up with your Obgyn Nyla Baron within [address] Trujillo ([address] [place] [facility] [address], [facility] [address], [phone]) -ER precautions reviewed (fever, severe pain, erythema, moderate-severe discharge from incision sites, signs and symptoms of infection) -Pain management Ibuprofen 600mg PO Q6 with food PRN pain 1-3 ; Percocet 5/ 325mg PO Q4 PRN for pain 4-[address] Trujillo
--- NOTE | 2017-02-14 09:11 | OP ---
PROCEDURE DATE: 02/13/2017 PREOPERATIVE DIAGNOSIS: Ectopic . POSTOPERATIVE DIAGNOSIS: Ectopic . OPERATIONS PERFORMED: Laparoscopy, left salpingectomy. OPERATIVE FINDINGS: Left tubal ectopic , normal right tube, normal ovaries bilaterally, nor mal uterus. COMPLICATIONS: None. ESTIMATED BLOOD LOSS: 100 mL. FLUIDS: 800 mL lactated ringers. URINE OUTPUT: 200 mL of clear urine at the end of procedure. SURGEON: Dr. Isaiah Trujillo. PROJECT CONTROL ANALYST: Dr. Zehra Saldivar. Dr. Saldivar was present from the beginning of the procedure to the end of procedure. She was integral in controlling intraoperative bleeding, exposing the surgical fie ld, and surgical removal of the ectopic. ANESTHESIA: General. ANESTHESIOLOGIST: Dr. Espinosa. PROCEDURE: The patient was taken to the operating room where general anesthesia was found to be adeq uate. The patient was prepped and draped in normal sterile fashion in the dorsal lithotomy position. A weighted speculum was placed at the posterior aspect of the vagina. A Hidalgo retractor was placed at the anterior surface of the vagina. The cervix was grasped with a single-tooth tenaculum at the a nterior surface. The cervix was dilated with Woodall dilators to a size of 20-Arabic. A uterine manip ulator was placed through the cervix into the uterine cavity. Tenaculum was removed from the cervix. Attention was then turned to the abdomen. An approximately 0.5 cm incision was placed at the umbilic us. Veress needle was placed through this incision into the abdominal cavity. After proper location confirmed, the abdominal cavity was insufflated with CO2 gas to a pressure of 15 mmHg. The Veress n eedle was removed from the patient. A 5 mm trocar was placed through the umbilical incision into the abdominal cavity. The laparoscope was placed through this port site. The abdomen and pelvis were e xplored and the above findings noted. An 11 mm accessory port site was placed on the right lateral abdominal wall. This port site was plac ed under direct visualization. The left tube was removed under direct visualization with LigaSure device using electrocautery and sh tyrone dissection. After removal of left tube with ectopic , the pedicle was observed. This s urgical pedicle was found to be hemostatic. The surgical specimen was removed from the abdominal cav ity using Endobag. The abdomen and pelvis were irrigated with copious amounts of warm normal saline. Reinspection of the surgical pedicle proved hemostasis. The trocars were removed from the patient under direct visualization. All instruments were removed f rom the patient. The fascial layer at the accessory port site was repaired with an interrupted suture of 0 Vicryl. Th e skin was closed at both port sites with 3-0 Vicryl in a subcutaneous manner. Both port site incisi ons were treated with Dermabond. The patient tolerated the procedure well. All sponge counts, lap counts and needle counts were corre ct x 2. There were no complications. The patient was taken to the recovery room awake and in stable condition. Sathish Trujillo MD cc: [id number] TT: 02/14/2017 09:11:17 landy
[2017-02-14] MEDS ORDERED: Insulin Regular 100 units/ml SC ONE (22:29)
== END 2017-02-14 09:02 | disposition home or self-care (01) | DRG 378 ==
LOC: H.ER 11:22 → H.ERHOLD 16:14 → H.MEDSURG1 20:30
PROVIDERS: ADMIT Obstetrics & Gynecology; ATTEND Obstetrics & Gynecology
PROC: 10T24ZZ Resection of Products of Conception, Ectopic, Percutaneous Endoscopic Approach (ICD-10-PCS; 2017-02-13)
PROC: 0UB64ZZ Excision of Left Fallopian Tube, Percutaneous Endoscopic Approach (ICD-10-PCS; principal; 2017-02-13 16:30)
DX: O00.10 Tubal pregnancy without intrauterine pregnancy (principal); E11.40 Type 2 diabetes mellitus with diabetic neuropathy, unspecified; E11.65 Type 2 diabetes mellitus with hyperglycemia; K50.90 Crohn's disease, unspecified, without complications; E87.1 Hypo-osmolality and hyponatremia; E03.9 Hypothyroidism, unspecified; Z79.4 Long term (current) use of insulin; F17.210 Nicotine dependence, cigarettes, uncomplicated; F41.9 Anxiety disorder, unspecified; F32.9 Major depressive disorder, single episode, unspecified; G89.29 Other chronic pain